=== PATIENT | male | born 1965 | race Caucasian/White ===

== ENCOUNTER 2018-11-29 15:11 | Inpatient (IN) | payer SELFPAY ==
[~2018-11-29 15:11] MED LIST: ISOVUE-370 76%-LOCM 1 ML ONE
[2018-11-29 15:55] LABS: Hemoglobin 15.9 g/dL (14.0-18.0); Mean Corpuscular HGB CONC 33.8 g/dL (32.0-36.0); Mean Corpuscular Hemoglobin 32.7 pg (27.0-31.0); Mean Corpuscular Volume 96.8 fL (78.0-98.0); Mean Platelet Volume 7.3 fL (7.4-10.4); Platelet Count 339 thou/uL (130-400); RBC Distribution Width 12.4 % (11.5-14.5); Red Blood Cell (RBC) Count 4.85 mill/uL (4.70-6.10); White Blood Cell (WBC) Count 14.6 thou/uL (4.8-10.8)
[2018-11-29 16:10] LABS: ALT (SGPT) 24 U/L (8-55); AST (SGOT) 25 U/L (5-34); Albumin 4.3 g/dL (3.5-5.0); Alkaline Phosphatase 68 U/L (40-150); Anion Gap 19 mmol/L (10-20); BUN (Urea Nitrogen) 30 mg/dL (8.4-25.7); Bilirubin, Total 1.1 mg/dL (0.2-1.2); CK (CPK) 95 U/L (30-200); Calc. Creatinine Clearance 0 mL/min (70-130); Calcium 9.7 mg/dL (7.8-10.44); Carbon Dioxide 31 mmol/L (22-29); Chloride 92 mmol/L (98-107); Estimated GFR-MDRD 62; Globulin 3.3 g/dL (2.4-3.5); Glucose 113 mg/dL (70-105); Protein, Total 7.6 g/dL (6.0-8.3); Sodium 139 mmol/L (136-145)
[2018-11-29 16:21] LABS: Potassium 2.8 mmol/L (3.5-5.1)
[2018-11-29] MEDS ORDERED: Morphine 4 MG/ML VIAL ONE (16:24)
[2018-11-29] MEDS ORDERED: Ondansetron PF 4 MG/2 ML Vial ONE (16:24)
--- NOTE | 2018-11-29 16:24 | RAD ---
Chest AP view INDICATION: Preoperative examination; history of hernia and nausea and vomiting COMPARISON: Prior exam dated July 29, 2004 FINDINGS:The lungs are clear. Heart size is within normal limits. No pleural effusion or pneumothorax is evident. No acute osseous abnormality is evident. IMPRESSION: No acute cardiopulmonary abnormality.
[2018-11-29 16:25] LABS: Eosinophils 1 % (0-10); Lymphocytes 10 % (21-51); MDiff Complete? YES; Monocytes 9 % (0-10); Neutrophil 76 % (42-75); Platelet Morphology Comment Appears Adequate; RBC Morphology Normal; Reactive Lymphocytes 3 % (0-10)
[2018-11-29] MEDS ORDERED: NS 0.9% w/ 20 MEQ KCL 1,000 ML IV SCH (16:30)
[2018-11-29 16:32] LABS: CKMB 2.3 ng/mL (0-6.6)
--- NOTE | 2018-11-29 16:43 | CT ---
EXAM: Abdomen and pelvic CT scan with contrast: HISTORY: Acute onset abdominal pain, nausea vomiting, hernia COMPARISON: 08/07/2004 FINDINGS: The visualized lung bases are clear. Liver: Unremarkable. Gallbladder: Unremarkable. Pancreas: Unremarkable Spleen: Unremarkable. Adrenal glands: Unremarkable. Kidneys: Bilateral nonobstructive calculi No solid or cystic mass. Bowel: There is evidence of fluid-filled distention of multiple loops of hyperemic small bowel which is related to an incarcerated hernia at the periumbilical region. The distal bowel is decompressed with site of transition at the level of the hernia. There is colonic diverticulosis. Urinary Bladder: Decompressed Adenopathy: No adenopathy within the abdomen or pelvis. Free Air: No free air. Ascites: No ascites. Osseous structures: No acute osseous abnormalities. IMPRESSION: Evidence of incarcerated hernia of the ventral abdominal wall with associated mechanical obstruction. Surgical consultation is recommended. Telephone call of findings placed to ER physician Dr. Chevy rea 1625 hours.
--- NOTE | 2018-11-29 17:11 | PDOC.EVN ---
Event Note - Event Note Event Note: consult dictated. Hernia reduced in ER. Plan elective repair this hospitalization after cardiac clearance.
[2018-11-29] MEDS ORDERED: Aspirin 325 MG TAB ONE (17:12)
--- NOTE | 2018-11-29 17:49 | CON ---
DATE OF CONSULTATION: 11/29/2018 CHIEF COMPLAINT: Abdominal distention, nausea, and vomiting. HISTORY OF PRESENT ILLNESS: This is a 53-year-old male with a known history of umbilical hernia that he has had for several years. It was always reducible for. He would reduce it every morning after waking up. He does have a history of syndrome and that causes him to cough quite a bit. He started to develop more abdominal distention and belly pain this afternoon associated with nausea and vomiting, not passing gas. Seen in the emergency department, where CAT scan reveals this umbilical hernia to have intestine in it, as well as some edematous changes. The pain is described as 6/10, does not radiate. Hurts to push on the umbilical hernia. PAST MEDICAL HISTORY: . PAST SURGICAL HISTORY: He denies. MEDICINES: Allergy medicines, prednisone 10 mg a day. SOCIAL HISTORY: No smoker. Occasional alcohol. REVIEW OF SYSTEMS: Ten-system review of systems is otherwise negative unless described above. PHYSICAL EXAMINATION: VITAL SIGNS: Pulse 105, blood pressure is 140/86. He is afebrile. HEENT: Sclerae anicteric. Oropharynx clear. NECK: No lymphadenopathy. CHEST: Clear. HEART: Regular rate and rhythm. ABDOMEN: Soft, minimally distended, but active bowel sounds. There is an incarcerated umbilical hernia that was able to be reduced at the bedside. EXTREMITIES: No ischemia or edema to extremities. LABORATORY DATA: White blood cell count is 14, hemoglobin is 15, platelet count is 339. Sodium 139, potassium 2.8, creatinine is 1.21. Troponin is mildly high at 0.043. IMAGING STUDIES: CT scan as above. ASSESSMENT: Incarcerated umbilical hernia, reduced at the bedside. PLAN: Admit to Medicine. He has mild EKG changes and elevated troponin. Once that is worked out, I can take him to the operating room for elective hernia repair. Risks, benefits, and alternatives were discussed. He gives consent. Job ID: [id number]
[2018-11-29] MEDS ORDERED: Ondansetron ODT 4 MG TAB SL PRN (18:33)
[2018-11-29] MEDS ORDERED: Ondansetron PF 4 MG/2 ML Vial IVP PRN (18:33)
[2018-11-29 20:06] LABS: Troponin I 0.027 ng/mL (< 0.028)
[2018-11-29] MEDS ORDERED: [UNRECOGNIZED DRUG - REMARK] NASAL PRN (21:57)
[2018-11-29] MEDS ORDERED: predniSONE 5 MG TAB PO SCH (22:00)
[2018-11-29] MEDS ORDERED: Loratadine 10 MG TAB PO PRN (22:03)
[2018-11-29] MEDS ORDERED: Fluticasone Propionate Nasal Spray 16 gm Bottle NASAL PRN (22:15)
[2018-11-29] MEDS ORDERED: Potassium Chloride 40 MEQ in Sodium Chloride 0.9% 250 ML 250 ML IVPB SCH (22:15)
[2018-11-29] MEDS ORDERED: CHLORPHENIRAMINE MALEATE 4 MG PO PRN (22:15)
[2018-11-29] MEDS ORDERED: guaiFENesin 200 MG TAB PO PRN (22:15)
[2018-11-29 23:31] LABS: Troponin I 0.041 ng/mL (< 0.028)
[2018-11-30] MEDS ORDERED: Morphine 2 MG/ML SYRINGE SLOW IVP PRN (02:15)
[2018-11-30] MEDS: Morphine 4 MG/ML VIAL SLOW IVP PRN ×2 (02:26→19:40)
--- NOTE | 2018-11-30 02:47 | HP ---
CHIEF COMPLAINT: Abdominal pain related to hernia. 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 The patient reports that his typical routine is to wake up in the morning, reduced the hernia and then wear the binder strap for the remainder of the day. This worked well until Thursday, at that time, he reduced it in the morning, but about an hour later started having significant abdominal pain that persisted throughout the day and ultimately resulted in vomiting throughout the night, Thursday night. The pain remained fairly severe throughout Thursday. The patient reports he just stayed in bed, did not eat or drink much. He did not have any further vomiting at that time. He reports that the hernia did pop back out, and since that time, it had not reduced and he was not able to make it reduce. The patient ultimately presented to the emergency department today. He was seen in consultation by Dr. Adams and ultimately they were able to reduce the hernia, and the patient reports that he is actually feeling somewhat better now. The patient also reports that during these episodes on Thursday, he was experiencing some chest pain as well, but was in the midst of all the vomiting. He has not had pain like that previously. REVIEW OF SYSTEMS: The patient reports some mild sleep problems and has occasional shortness of breath. He does report that he would be able to comfortably walk several city blocks and only get short of breath, if he is walking up stairs. 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 He has a history of pericarditis with pericardial effusion, which apparently resolved spontaneously and was followed by Dr. Baldwin. PAST SURGICAL HISTORY: Only a dental extraction that the patient reports that he had full anesthesia related to that. FAMILY HISTORY: Father had a CVA at 85. His mother had an SC. SOCIAL HISTORY: The patient is a nonsmoker, nondrug user. Drinks socially. He is single. He is a full code and his mother, Mike would be his surrogate decision maker. ALLERGIES: NONE. CURRENT MEDICATIONS: 1. Prednisone 5 mg b.i.d. 2. Guaifenesin/dextromethorphan one p.o. q.4 hours p.r.n. 3. Triamcinolone nasal spray two sprays per nostril daily. 4. Loratadine 10 mg daily. 5. Guaifenesin 400 mg q.4 hours p.r.n. 6. Fluticasone Allergy Relief two sprays per nostril daily. 7. ChlorTabs 4 mg q.4 p.r.n. 8. Zyrtec 10 mg daily p.r.n. PHYSICAL EXAMINATION: VITAL SIGNS: Temperature 98.6, pulse 112, respirations 17, O2 saturations 95% on room air, and blood pressure is 135/76. GENERAL APPEARANCE: An age-appropriate male. He is awake, alert, oriented, pleasant, and cooperative, in no distress. HEENT: PERRL. No OP lesions. NECK: Supple and symmetric. No lymphadenopathy, JVD, or bruits. HEART: Regular rate and rhythm without murmurs, gallops, or rubs. LUNGS: Clear to auscultation bilaterally with good chest wall expansion and air exchange. ABDOMEN: Soft, nontender, and nondistended. The umbilical hernia does protrude with any increased abdominal pressure, but it is easily reducible. He has slight tenderness to palpation in the left lower quadrant lateral to the umbilicus. EXTREMITIES: No cyanosis, clubbing, or edema. Pulses are faint, but symmetric. NEUROLOGIC: The patient appears to be grossly intact. He moves all extremities spontaneously. No focal deficits. PSYCHIATRIC: The patient has normal affect and behavior. LABORATORY DATA: White count 14.6, hemoglobin 15.9, platelets 339, 76 neutrophils, 10 lymphocytes, no bands noted. Sodium 139, potassium 2.8, chloride 92, CO2 of 31, BUN 30, creatinine 1.21, and glucose 113. LFTs are normal. Troponin 0.043, subsequent 0.027. Albumin is 4.3. DIAGNOSTIC DATA: CT abdomen and pelvis done before reduction of the hernia revealed evidence of incarcerated hernia in the ventral abdominal wall associated with mechanical obstruction. Chest x-ray, unclear. EKG showed some early repolarization and some nonspecific ST changes in the lateral leads. IMPRESSION AND PLAN: 1. Incarcerated umbilical hernia, which is now reduced. The plan is for surgical repair prior to discharge. 2. Chest pain. The patient has some chest pain in the midst of having vomiting in this obstruction, unclear if this was related to the gastrointestinal tract or if it was cardiac. His initial troponin was slightly elevated. Repeat is back to normal range. He has no cardiac history. He has minimal risk factors. His EKG is fairly nonspecific. We will continue to keep him on tele, rule out with serial enzymes and repeat EKG in the morning. Pending the EKG results, the patient may need a stress test, so that he can be cleared to have the surgery. 3. Hypokalemia. The patient is receiving IV fluids with potassium supplementation. We will go ahead and give him an IV dose of 40 mEq IV x1, and recheck those in the morning. 4. History of Churg-Nish disease. We will continue with prednisone and his usual medical regimen as best we can emulate of avoiding any significant cardiac stimulants, but we will give him albuterol nebs as needed. Job ID: [id number]
[2018-11-30] MEDS: NS 0.9% w/ 20 MEQ KCL 1,000 ML/1,000 ML BAG IV SCH ×3 (03:58→18:30)
[2018-11-30 06:02] LABS: #Basophils 0.1 thou/uL (0.0-0.2); #Eosinphils 0.6 thou/uL (0.0-0.7); #Lymphocytes 0.9 thou/uL (1.20-3.40); #Monocytes 1.1 thou/uL (0.11-0.59); #Neutrophils 10.1 thou/uL (1.40-6.50); %Basophils 0.5 % (0.0-1.0); %Eosinophils 4.7 % (0.0-10.0); %Monocytes 8.7 % (0.0-10.0); %Neutrophils 79.1 % (42.0-75.0); Hemoglobin 13.2 g/dL (14.0-18.0); Mean Corpuscular HGB CONC 33.8 g/dL (32.0-36.0); Mean Corpuscular Hemoglobin 33.5 pg (27.0-31.0); Mean Corpuscular Volume 99.2 fL (78.0-98.0); Mean Platelet Volume 7.3 fL (7.4-10.4); Platelet Count 261 thou/uL (130-400); RBC Distribution Width 12.2 % (11.5-14.5); Red Blood Cell (RBC) Count 3.95 mill/uL (4.70-6.10); White Blood Cell (WBC) Count 12.8 thou/uL (4.8-10.8)
[2018-11-30 06:10] LABS: Anion Gap 14 mmol/L (10-20); BUN (Urea Nitrogen) 23 mg/dL (8.4-25.7); Calc. Creatinine Clearance 127 mL/min (70-130); Calcium 8.3 mg/dL (7.8-10.44); Carbon Dioxide 27 mmol/L (22-29); Chloride 104 mmol/L (98-107); Estimated GFR-MDRD Greater than 90; Glucose 79 mg/dL (70-105); Potassium 3.5 mmol/L (3.5-5.1); Sodium 141 mmol/L (136-145)
[2018-11-30] MEDS ORDERED: predniSONE 5 MG TAB PO SCH (09:00)
[2018-11-30] MEDS: Albuterol Sulfate 2.5 mg/3 ml Neb NEB PRN ×2 (09:26→15:34)
[2018-11-30] MEDS: guaiFENesin/DM ER PO PRN ×2 (10:39→22:54)
[2018-11-30] MEDS ORDERED: methylPREDNISolone Sod Succ/PF 125 MG/2 ML VIAL IVP SCH (12:15)
--- NOTE | 2018-11-30 13:45 | PDOC.PN ---
- Subjective Encounter Start Date: 11/30/18 Encounter Start Time: 13:10 CC; abdominal pain. chest pain HPI; 53 male with h/o Churg-Nish who came for nonreducible umbilical hernia but also develop chest pain. Abnormal troponin on triage. Subjective; patient seen and eval at bedside. He refers nasal congestion. Per nurse, no other acute events overnight. ROS: all systems are reviewed and negativ except for the ones mentioned above - Objective Resuscitation Status - Order Detail: 11/29/18 21:55 Resuscitation Status Routine Resuscitation Status: FULL: Full Resuscitation MAR Reviewed: Yes Vital Signs & Weight: Vital Signs (12 hours) Temp Pulse Resp BP Pulse Ox 11/30/18 11:23 98.1 F 84 16 142/74 H 97 11/30/18 09:26 92 18 99 11/30/18 08:01 98 F 86 18 146/70 H 98 11/30/18 04:00 98.1 F 87 18 132/69 99 Weight Admit Weight 197 lb 3.2 oz Weight 198 lb I&O: 11/29/18 11/30/18 12/01/18 06:59 06:59 06:59 Intake Total 850 Output Total 500 Balance 350 Result Diagrams: 11/30/18 05:26 11/30/18 05:26 Radiology Reviewed by me: Yes EKG Reviewed by me: Yes Phys Exam - Physical Examination HEENT: PERRLA, moist MMs, sclera anicteric Neck: no nodes, no JVD, supple, full ROM Respiratory: no wheezing, no rales, no rhonchi, clear to auscultation bilateral Cardiovascular: RRR, no significant murmur, no rub Gastrointestinal: soft, non-tender, no distention, positive bowel sounds Reducible umbilical hernia Musculoskeletal: no edema, pulses present Neurological: non-focal, normal sensation, moves all 4 limbs Psychiatric: normal affect, A&O x 3 Skin: no rash, normal turgor, cap refill <2 seconds Dx/Plan (1) Incarcerated umbilical hernia Code(s): K42.0 - UMBILICAL HERNIA WITH OBSTRUCTION, WITHOUT GANGRENE Status: Acute Plan: Reducible now. General surgery follows and awaiting surgical clearance. (2) Chest pain Code(s): R07.9 - CHEST PAIN, UNSPECIFIED Status: Acute Qualifiers: Chest pain type: unspecified Qualified Code(s): R07.9 - Chest pain, unspecified Plan: Suspect referred pain. Abnormal troponin. Cardiology consulted (3) Elevated troponin Code(s): R74.8 - ABNORMAL LEVELS OF OTHER SERUM ENZYMES Status: Acute Plan: Nonspecific. Cardiology consulted. h/o vasculitis concerning for CAD. ASA 81 daily. 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 - Plan cont current plan of care CODE; FULL CORE; SCDs DISP; TELEMETRY PROG; GUARDED CLINICAL STATUS; GUARDED EXPECTED DISCHARGE; TBD TOTAL TIME SPENT; 32 MINUTES DATE OF SERVICE; 11/30/2018
[2018-11-30] MEDS ORDERED: Aspirin 81 mg Enteric Coated Tablet PO SCH (14:00)
[2018-11-30] MEDS: Atorvastatin Calcium 40 MG TAB PO SCH (19:37)
--- NOTE | 2018-11-30 21:28 | CON ---
DATE OF CONSULTATION: 11/30/2018 REASON FOR CONSULTATION: Preoperative evaluation. HISTORY OF PRESENT ILLNESS: Mr. Shawn Thakur is a 53-year-old gentleman. The patient has a history of umbilical hernia. He has always been able to reduce this when it became a problem for him until this most recent episode where he finally came to the emergency room where he was unable to reduce his hernia, started nausea, vomiting, not passing gas, severe recurrent vomiting. He has some chest pain associated with this after the prolonged vomiting. His main symptom was severe abdominal pain associated with this, ultimately was able to be reduced by Dr. Adams and he is feeling much better. REVIEW OF SYSTEMS: CONSTITUTIONAL: No significant weight gain or weight loss. VISION: No changes. HEARING: No changes. PULMONARY: No cough or wheezing. GASTROINTESTINAL: No nausea, vomiting, or diarrhea. He does have some intermittent wheezing, but is breathing well now. PAST MEDICAL HISTORY: Churg-Nish disease, which maintained on prednisone; history of pericarditis many years ago with pericardial effusion, which spontaneously resolved. PAST SURGICAL HISTORY: Negative for cardiac operations or procedures. FAMILY HISTORY: Father with a stroke at 85. SOCIAL HISTORY: No smoking or drugs. Drinks socially. Single. ALLERGIES: NONE. MEDICATIONS: Prior to admission, 1. Prednisone. 2. Loratadine. 3. Zyrtec. PHYSICAL EXAMINATION: GENERAL: Now the patient is comfortable, resting comfortably, in no distress. VITAL SIGNS: Blood pressure 142/74, pulse 84 and regular. EYES: Sclerae nonicteric. MOUTH: Mucous membranes moist. NECK: Supple. No lymphadenopathy. LUNGS: Clear. No wheezing, rales, or rhonchi. CARDIAC: Normal S1, normal S2. There is no murmur, rub, or gallop. ABDOMEN: Soft and nontender. EXTREMITIES: Warm, dry. No clubbing, no cyanosis, no edema. LABORATORY STUDIES: EKG initially when he came in there was a sinus tachycardia with some nonspecific ST depression in lead II, V4, V5, V6. Followup EKG showed only some very minimal nonspecific EKG findings. There is a possible old inferior infarct that is probably related to axis deviation. Potassium was 2.8, up to 3.5. Peak troponin 0.043. It is in the indeterminates all the way up to 0.29. ASSESSMENT: 1. Umbilical hernia with incarceration. Fortunately, they will be able to be reduced. 2. Nonspecific ST changes with tachycardia. 3. Indeterminate troponin levels associated with shortness of breath, but mostly chest pain after prolonged nausea and vomiting, probably gastrointestinal in origin. 4. The patient could have underlying coronary artery disease, but needs surgical repair of this umbilical hernia relatively soon. PLAN: 1. Echocardiogram to further risk stratify. 2. Stress testing to further risk stratify. Hopefully unless there are severe abnormalities, can proceed to surgery later this week. Job ID: [id number]
--- NOTE | 2018-11-30 23:14 | EKG ---
Test Reason : Blood Pressure : / mmHG Vent. Rate : 089 BPM Atrial Rate : 089 BPM P-R Int : 144 ms QRS Dur : 084 ms QT Int : 366 ms P-R-T Axes : 033 -05 -69 degrees QTc Int : 445 ms Normal sinus rhythm Inferior infarct , age undetermined /Possibly with QS lead III and aVf Abnormal ECG When compared with ECG of 29-NOV-2018 15:28, (Unconfirmed) ST no longer elevated in Inferior leads Nonspecific T wave abnormality has replaced inverted T waves in Lateral leads Confirmed by SAPPHIRE REEVES ([id number]) on 11/30/2018 11:14:04 PM Referred By: ALE Confirmed By:SAPPHIRE REEVES
[2018-12-01] MEDS: NS 0.9% w/ 20 MEQ KCL 1,000 ML/1,000 ML BAG IV SCH ×2 (01:42→19:31)
[2018-12-01] MEDS: Morphine 4 MG/ML VIAL SLOW IVP PRN ×3 (01:51→19:39)
[2018-12-01 06:51] LABS: Hemoglobin 12.9 g/dL (14.0-18.0); Mean Corpuscular Hemoglobin 32.1 pg (27.0-31.0); Mean Corpuscular Volume 97.4 fL (78.0-98.0); Mean Platelet Volume 7.6 fL (7.4-10.4); Platelet Count 301 thou/uL (130-400); Red Blood Cell (RBC) Count 4.01 mill/uL (4.70-6.10); White Blood Cell (WBC) Count 11.9 thou/uL (4.8-10.8)
[2018-12-01 06:58] LABS: ALT (SGPT) 20 U/L (8-55); AST (SGOT) 19 U/L (5-34); Albumin 3.5 g/dL (3.5-5.0); Alkaline Phosphatase 59 U/L (40-150); Anion Gap 12 mmol/L (10-20); BUN (Urea Nitrogen) 15 mg/dL (8.4-25.7); Bilirubin, Total 0.5 mg/dL (0.2-1.2); Calc. Creatinine Clearance 145 mL/min (70-130); Calcium 8.7 mg/dL (7.8-10.44); Carbon Dioxide 23 mmol/L (22-29); Chloride 109 mmol/L (98-107); Cholesterol 198 mg/dl (< 200 Desired); Estimated GFR-MDRD Greater than 90; Globulin 2.7 g/dL (2.4-3.5); Glucose 118 mg/dL (70-105); HDL Cholesterol 33 mg/dL (>60 Neg Risk); LDL Cholesterol, Calculated 128 mg/dL; Magnesium 1.9 mg/dL (1.6-2.6); Potassium 3.9 mmol/L (3.5-5.1); Protein, Total 6.2 g/dL (6.0-8.3); Sodium 140 mmol/L (136-145); Triglycerides 185 mg/dL (Less than 150)
[2018-12-01] MEDS ORDERED: methylPREDNISolone Sod Succ/PF 125 MG/2 ML VIAL IVP SCH (09:00)
[2018-12-01] MEDS ORDERED: Regadenoson 0.4 MG/5 ML SYRINGE ONE (10:17)
--- NOTE | 2018-12-01 10:25 | PDOC.GSPN ---
Surgery Progress Note: Subj - Subjective Patient reports: no new complaints (Having stress test second stage this am) Surgery Progress Note: Obj - Vital signs Vital signs: Vital Signs - Most Recent Temp Pulse Resp BP Pulse Ox 98.1 F 92 16 140/84 96 12/01/18 04:00 12/01/18 07:23 12/01/18 07:23 12/01/18 04:00 12/01/18 07:23 - Physical Exam General: no distress Abdomen: soft, non tender, nondistended Surgery Progress Note: Results - Labs Result Diagrams: 12/01/18 06:16 12/01/18 06:16 Lab results: Laboratory Results - last 24 hr 12/01/18 12/01/18 06:16 06:16 WBC 11.9 H RBC 4.01 L Hgb 12.9 L Hct 39.1 L MCV 97.4 MCH 32.1 H MCHC 33.0 RDW 12.0 Plt Count 301 MPV 7.6 Sodium 140 Potassium 3.9 Chloride 109 H Carbon Dioxide 23 Anion Gap 12 BUN 15 Creatinine 0.75 Estimated GFR (MDRD) Greater than 90 Glucose 118 H Calcium 8.7 Magnesium 1.9 Total Bilirubin 0.5 AST 19 ALT 20 Alkaline Phosphatase 59 Serum Total Protein 6.2 Albumin 3.5 Globulin 2.7 Albumin/Globulin Ratio 1.3 Triglycerides 185 H Cholesterol 198 LDL Cholesterol, Calc 128 HDL Cholesterol 33 Heart Disease Risk Ratio 6.0 Surgery Progress Note: A/P - Problem (1) Incarcerated umbilical hernia Current Visit: Yes Code(s): K42.0 - UMBILICAL HERNIA WITH OBSTRUCTION, WITHOUT GANGRENE Status: Acute Assessment and Plan: Reduced in ER - Plan Plan: Await completion of stress test -To OR or Thursday for umbilical hernia repair
--- NOTE | 2018-12-01 11:27 | NM ---
Radionucleotide stress and rest myocardial perfusion scan with CT attenuation correction and SPECT im aging Left ventricular wall motion evaluation and ejection fraction: HISTORY: Chest pain. FINDINGS: Lexiscan protocol. There is homogeneous uptake of radiotracer throughout the left ventricular myocard ium. No focal perfusion defect or reversibility. QGS analysis of gated SPECT images shows global hypokinesis without focal wall motion abnormality. Ej ection fraction calculated at 53%. IMPRESSION: 1. No scintigraphic evidence of ischemia. 2. Borderline ejection fraction of 53% without focal wall motion abnormality. Transcribed Date/Time: 12/01/2018 11:50 AM
[2018-12-01] MEDS: Aspirin 81 mg Enteric Coated Tablet PO SCH (11:29)
[2018-12-01] MEDS: Ondansetron PF 4 MG/2 ML Vial IVP PRN ×2 (11:31→19:39)
--- NOTE | 2018-12-01 12:48 | PDOC.PN ---
- Subjective Encounter Start Date: 12/01/18 Encounter Start Time: 07:00 CC; ABDOMINAL PAIN. CHEST PAIN SUBJECTIVE; PATIENT SEEN AND EVALUATED. REFERS SOME SOB. NO PAIN. PER NURSE, NO OTHER ACUTE EVENTS OVERNIGHT. ROS; ALL SYSTEMS ARE REVIEWED AND NEGATIVE EXCEPT FOR THE ONES MENTIONED ABOVE. - Objective Resuscitation Status - Order Detail: 11/29/18 21:55 Resuscitation Status Routine Resuscitation Status: FULL: Full Resuscitation MAR Reviewed: Yes Vital Signs & Weight: Vital Signs (12 hours) Temp Pulse Resp BP Pulse Ox 12/01/18 11:45 99 12/01/18 11:30 97.5 F L 93 18 136/86 99 12/01/18 07:23 92 16 96 12/01/18 04:00 98.1 F 89 13 140/84 95 Weight Admit Weight 197 lb 3.2 oz Weight 200 lb 4 oz I&O: 11/30/18 12/01/18 12/02/18 06:59 06:59 06:59 Intake Total 850 3515 Output Total 500 2550 Balance 350 965 Result Diagrams: 12/01/18 06:16 12/01/18 06:16 Radiology Reviewed by me: Yes EKG Reviewed by me: Yes Phys Exam - Physical Examination HEENT: PERRLA, moist MMs, sclera anicteric Neck: no nodes, no JVD, supple Respiratory: no wheezing, no rales, no rhonchi Cardiovascular: RRR, no significant murmur, no rub Gastrointestinal: soft, non-tender, no distention, positive bowel sounds REDUCIBLE UMBILACAL HERNIA Musculoskeletal: no edema, pulses present Neurological: non-focal, normal sensation, moves all 4 limbs Psychiatric: normal affect, A&O x 3 Skin: no rash, normal turgor, cap refill <2 seconds Dx/Plan (1) Incarcerated umbilical hernia Code(s): K42.0 - UMBILICAL HERNIA WITH OBSTRUCTION, WITHOUT GANGRENE Status: Acute Plan: REDUCIBLE. FOR SURGICAL REPAIR THURSDAY OR THURSDAY (2) Chest pain Code(s): R07.9 - CHEST PAIN, UNSPECIFIED Status: Acute Qualifiers: Chest pain type: unspecified Qualified Code(s): R07.9 - Chest pain, unspecified Plan: NEGATIVE STRESS TEST. RESOLVED (3) Elevated troponin Code(s): R74.8 - ABNORMAL LEVELS OF OTHER SERUM ENZYMES Status: Acute Plan: NEGATIVE STRESS TEST. 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 INCREASE SOLU-MEDROL FREQUENCY. FOR SURGERY LIKELY TOMORROW. CODE; FULL CORE; SCD DISP; SURGICAL PROG; GUARDED CLINICAL STATUS; GUARDED EXPECTED DISCHARGE; TO BE DETERMINED TOTAL TIME SPENT; 25 MINUTES DATE OF SERVICE; 12/01/2018
[2018-12-01] MEDS: guaiFENesin/DM ER PO PRN (14:49)
--- NOTE | 2018-12-01 15:42 | PRG ---
DATE OF SERVICE: 12/01/2018 SUBJECTIVE: Mr. Thakur is doing well. No complaints. OBJECTIVE: VITAL SIGNS: Blood pressure 136/84. Pulse 90 and regular. LUNGS: Clear. CARDIAC: Normal S1 and normal S2. PERTINENT LABORATORY DATA: The stress test showed no ischemia. The ejection fraction is 53%. ASSESSMENT: 1. No evidence of any ischemia on stress testing. 2. Incarcerated umbilical hernia, now it is reduced. PLAN: The patient is okay to proceed with surgical therapy as is being planned. Job ID: [id number]
[2018-12-01] MEDS: Atorvastatin Calcium 40 MG TAB PO SCH (19:38)
[2018-12-01] MEDS: methylPREDNISolone Sod Succ/PF 125 MG/2 ML VIAL IVP SCH (19:38)
[2018-12-02 06:29] LABS: Hemoglobin 12.9 g/dL (14.0-18.0); Mean Corpuscular HGB CONC 33.6 g/dL (32.0-36.0); Mean Corpuscular Volume 98.2 fL (78.0-98.0); Mean Platelet Volume 7.5 fL (7.4-10.4); Platelet Count 317 thou/uL (130-400); RBC Distribution Width 11.9 % (11.5-14.5); Red Blood Cell (RBC) Count 3.92 mill/uL (4.70-6.10); White Blood Cell (WBC) Count 12.3 thou/uL (4.8-10.8)
[2018-12-02 06:54] LABS: ALT (SGPT) 23 U/L (8-55); AST (SGOT) 20 U/L (5-34); Albumin 3.7 g/dL (3.5-5.0); Alkaline Phosphatase 54 U/L (40-150); Anion Gap 15 mmol/L (10-20); BUN (Urea Nitrogen) 17 mg/dL (8.4-25.7); Bilirubin, Total 0.5 mg/dL (0.2-1.2); Calc. Creatinine Clearance 135 mL/min (70-130); Carbon Dioxide 22 mmol/L (22-29); Chloride 108 mmol/L (98-107); Estimated GFR-MDRD Greater than 90; Globulin 2.7 g/dL (2.4-3.5); Glucose 114 mg/dL (70-105); Potassium 3.8 mmol/L (3.5-5.1); Protein, Total 6.4 g/dL (6.0-8.3); Sodium 141 mmol/L (136-145)
[2018-12-02] MEDS ORDERED: Bupivacaine/Epinephrine 0.25% 30 ML VIAL ONE (08:44)
[2018-12-02] MEDS ORDERED: Fentanyl 250 MCG/5 ML VIAL ONE (09:02)
[2018-12-02] MEDS ORDERED: SUGAMMADEX SODIUM 500 MG/5 ML VIAL ONE (09:47)
--- NOTE | 2018-12-02 10:15 | PDOC.PN ---
- Subjective Encounter Start Date: 12/02/18 Encounter Start Time: 08:20 CC; ABDOMINAL PAIN. CHEST PAIN SUBJECTIVE; PATIENT SEEN AND EVAL. NO ACUTE COMPLAINTS. NEGATIVE STRESS TEST. PER NURSE, NO OTHER ACUTE EVENTS ROS; ALL SYSTEMS ARE REVIEWED AND NEGATIVE EXCEPT FOR THE ONES MENTIONED ABOVE. - Objective Resuscitation Status - Order Detail: 11/29/18 21:55 Resuscitation Status Routine Resuscitation Status: FULL: Full Resuscitation MAR Reviewed: Yes Vital Signs & Weight: Vital Signs (12 hours) Temp Pulse Resp BP Pulse Ox 12/02/18 07:55 100 14 12/02/18 07:30 98.4 F 93 20 162/97 H 12/02/18 04:00 98.3 F 94 17 161/84 H 96 Weight Admit Weight 197 lb 3.2 oz Weight 199 lb 2 oz I&O: 12/01/18 12/02/18 12/03/18 06:59 06:59 06:59 Intake Total 3515 1900 Output Total 2550 950 Balance 965 950 Result Diagrams: 12/02/18 06:00 12/02/18 06:00 Radiology Reviewed by me: Yes EKG Reviewed by me: Yes Phys Exam - Physical Examination HEENT: PERRLA, moist MMs, sclera anicteric Neck: no nodes, no JVD, supple Respiratory: no wheezing, no rales, no rhonchi, clear to auscultation bilateral Cardiovascular: RRR, no significant murmur, no rub Gastrointestinal: soft, non-tender, no distention REDUCIBLE UMBILICAL HERNIA Musculoskeletal: no edema, pulses present Neurological: non-focal, normal sensation, moves all 4 limbs Dx/Plan (1) Incarcerated umbilical hernia Code(s): K42.0 - UMBILICAL HERNIA WITH OBSTRUCTION, WITHOUT GANGRENE Status: Acute Plan: POSSIBLE SURGERY TODAY (2) Chest pain Code(s): R07.9 - CHEST PAIN, UNSPECIFIED Status: Acute Qualifiers: Chest pain type: unspecified Qualified Code(s): R07.9 - Chest pain, unspecified Plan: RESOLVED. CARDIAC STRESS TEST NEGATIVE (3) Elevated troponin Code(s): R74.8 - ABNORMAL LEVELS OF OTHER SERUM ENZYMES Status: Acute Plan: NONSPECIFIC. 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
[2018-12-02] MEDS ORDERED: Promethazine HCl 25 MG/ML VIAL IM PRN (10:57)
[2018-12-02] MEDS ORDERED: Promethazine HCl 25 MG/ML VIAL SLOW IVP PRN (10:57)
[2018-12-02] MEDS ORDERED: Meperidine HCl/PF 25 MG/ML VIAL SLOW IVP PRN (10:57)
[2018-12-02] MEDS ORDERED: Ondansetron HCl/PF 4 MG/2 ML Vial IVP PRN (10:57)
[2018-12-02] MEDS ORDERED: Fentanyl 100 MCG/2 ML VIAL ONE (11:12)
[2018-12-02] MEDS: Aspirin 81 mg Enteric Coated Tablet PO SCH (12:02)
[2018-12-02] MEDS: methylPREDNISolone Sod Succ/PF 125 MG/2 ML VIAL IVP SCH ×2 (12:04→20:28)
[2018-12-02] MEDS ORDERED: traMADol HCl 50 MG TAB PO PRN (12:40)
--- NOTE | 2018-12-02 13:56 | OP ---
DATE OF PROCEDURE: 12/02/2018 PREOPERATIVE DIAGNOSIS: Incarcerated umbilical hernia. POSTOPERATIVE DIAGNOSIS: Incarcerated umbilical hernia. PROCEDURE PERFORMED: Incarcerated umbilical hernia repair with mesh, Ventralex ST 6 cm. ANESTHESIA: General. ESTIMATED BLOOD LOSS: Minimal. COMPLICATIONS: None. SPECIMEN: None. FINDINGS: Incarcerated umbilical hernia. DESCRIPTION OF PROCEDURE: The patient was taken to the operating room and laid supine on the operating room table. After general anesthetic was obtained, the hernia was able to be reduced. The abdomen was shaved, prepped, and draped in a sterile fashion. A curved incision was made below the umbilicus. Cautery was dissected down to, the umbilical stalk was amputated, exposing umbilical defect. The hernia sac was debrided at the level of the fascia. The Ventralex ST 6 cm mesh was brought in the sterile field. The underlay was placed in the abdominal cavity as tails laid out laterally. Its tails were sewn via U-stitch of permanent braided suture to the edge of the fascia laterally and superiorly and inferiorly. The fascia was closed loosely over the mesh. The wound was irrigated. Local anesthetic was applied. The umbilical stalk was tacked back down using Vicryl. Skin was closed using 3-0 Vicryl, 4-0 Monocryl, and Dermabond. The patient was then sent to Recovery in stable condition. All instrument counts, needle counts, and lap counts were correct. Job ID: [id number]
[2018-12-02] MEDS ORDERED: Rocuronium Bromide 10 MG/ML (10ML VIAL) ONE (17:00)
[2018-12-02] MEDS ORDERED: Ondansetron PF 4 MG/2 ML Vial ONE (17:00)
[2018-12-02] MEDS ORDERED: Ketorolac Tromethamine 30 MG/ML VIAL ONE (17:00)
[2018-12-02] MEDS ORDERED: Lidocaine 1% PF 5 ML VIAL ONE (17:00)
[2018-12-02] MEDS ORDERED: PROPOFOL 200 MG/20 ML VIAL ONE (17:00)
[2018-12-02] MEDS ORDERED: Metoclopramide HCl 10 MG/2 ML VIAL ONE (17:00)
[2018-12-02] MEDS: HYDROcodone/Acetaminophen 10/325 mg Tablet PO PRN ×2 (17:30→22:08)
[2018-12-02] MEDS: guaiFENesin/DM ER PO PRN (20:28)
[2018-12-02] MEDS: Atorvastatin Calcium 40 MG TAB PO SCH (20:28)
[2018-12-03] MEDS: HYDROcodone/Acetaminophen 10/325 mg Tablet PO PRN ×3 (05:13→16:43)
[2018-12-03 05:25] LABS: Hemoglobin 13.2 g/dL (14.0-18.0); Mean Corpuscular HGB CONC 33.5 g/dL (32.0-36.0); Mean Corpuscular Hemoglobin 32.8 pg (27.0-31.0); Mean Corpuscular Volume 97.8 fL (78.0-98.0); Mean Platelet Volume 7.5 fL (7.4-10.4); Platelet Count 318 thou/uL (130-400); RBC Distribution Width 11.8 % (11.5-14.5); Red Blood Cell (RBC) Count 4.02 mill/uL (4.70-6.10); White Blood Cell (WBC) Count 14.3 thou/uL (4.8-10.8)
[2018-12-03 05:47] LABS: ALT (SGPT) 20 U/L (8-55); AST (SGOT) 14 U/L (5-34); Albumin 3.6 g/dL (3.5-5.0); Alkaline Phosphatase 52 U/L (40-150); Anion Gap 13 mmol/L (10-20); BUN (Urea Nitrogen) 16 mg/dL (8.4-25.7); Bilirubin, Total 0.5 mg/dL (0.2-1.2); Calc. Creatinine Clearance 125 mL/min (70-130); Calcium 8.7 mg/dL (7.8-10.44); Carbon Dioxide 23 mmol/L (22-29); Chloride 108 mmol/L (98-107); Estimated GFR-MDRD Greater than 90; Globulin 2.7 g/dL (2.4-3.5); Glucose 130 mg/dL (70-105); Potassium 3.9 mmol/L (3.5-5.1); Protein, Total 6.3 g/dL (6.0-8.3); Sodium 140 mmol/L (136-145)
[2018-12-03] MEDS: Albuterol Sulfate 2.5 mg/3 ml Neb NEB PRN (07:54)
[2018-12-03] MEDS: Aspirin 81 mg Enteric Coated Tablet PO SCH (09:14)
[2018-12-03] MEDS: methylPREDNISolone Sod Succ/PF 125 MG/2 ML VIAL IVP SCH (09:15)
[2018-12-03] MEDS: guaiFENesin/DM ER PO PRN ×2 (09:17→20:26)
--- NOTE | 2018-12-03 09:45 | PRG ---
DATE OF SERVICE: 12/03/2018 SUBJECTIVE: Mr. Thakur has no chest pain or pressure. He tolerated the abdominal surgery well. He is n.p.o. presently. OBJECTIVE: VITAL SIGNS: His blood pressure 154/92, followed by 160/95 and pulse 84. ASSESSMENT: 1. Preoperatively he had some chest pain, but with normal stress test. 2. Normal echocardiogram. PLAN: Postoperative care. No other recommendations presently. Please call us if needed. Job ID: [id number]
[2018-12-03 11:32] VITALS: BMI 26.3
[2018-12-03] MEDS ORDERED: Bacteriostatic Water 30 ML VIAL FS PRN (11:37)
--- NOTE | 2018-12-03 12:12 | PDOC.GSPN ---
Surgery Progress Note: Subj - Subjective Patient reports: feels better, positive flatus, pain well controlled Surgery Progress Note: Obj - Vital signs Vital signs: Vital Signs - Most Recent Temp Pulse Resp BP Pulse Ox 97.7 F 100 20 161/95 H 96 12/03/18 07:30 12/03/18 07:54 12/03/18 07:54 12/03/18 07:30 12/03/18 07:56 - Physical Exam General: no distress Respiratory: clear to auscultation Abdomen: soft, appropriately tender Wound: healing well Surgery Progress Note: Results - Labs Result Diagrams: 12/03/18 05:00 12/03/18 05:00 Lab results: Laboratory Results - last 24 hr 12/03/18 12/03/18 05:00 05:00 WBC 14.3 H RBC 4.02 L Hgb 13.2 L Hct 39.3 L MCV 97.8 MCH 32.8 H MCHC 33.5 RDW 11.8 Plt Count 318 MPV 7.5 Sodium 140 Potassium 3.9 Chloride 108 H Carbon Dioxide 23 Anion Gap 13 BUN 16 Creatinine 0.84 Estimated GFR (MDRD) Greater than 90 Glucose 130 H Calcium 8.7 Total Bilirubin 0.5 AST 14 ALT 20 Alkaline Phosphatase 52 Serum Total Protein 6.3 Albumin 3.6 Globulin 2.7 Albumin/Globulin Ratio 1.3 Surgery Progress Note: A/P - Problem (1) Incarcerated umbilical hernia Current Visit: Yes Code(s): K42.0 - UMBILICAL HERNIA WITH OBSTRUCTION, WITHOUT GANGRENE Status: Acute - Plan Plan: POD 1 umbilical hernia repair with mesh -Had dilated obstructed intestine in hernia at time of repair -advance diet today. -home tomorrow if doing well. Dr. Chiu covering for me. Rx for pain medicine on chart
--- NOTE | 2018-12-03 12:35 | PRG ---
DATE OF SERVICE: 12/03/2018 SUBJECTIVE: The patient is seen and examined at the bedside. He is doing quite well. He does not have much complaints to offer, although he has still quite a bit of abdominal discomfort from surgery done yesterday. He is tolerating liquids orally. His urine output is 820. OBJECTIVE: VITAL SIGNS: Blood pressure is 161/95, pulse is 100, temperature is 97.7, respiratory rate is 20, O2 saturation 96% on room air. HEENT: His head is atraumatic and normocephalic. Eyes are PERRLA. Sclerae are nonicteric. Oral mucosa is moist. NECK: Supple. LUNGS: Clear. HEART: S1 and S2 normal. No S3. No S4. No any murmur. ABDOMEN: Showing some swelling around the navel and some tenderness to touch with mild erythema. Bowel sounds are present. EXTREMITIES: No clubbing, cyanosis, or edema. NEUROLOGICAL: He follows my commands. He moves his all four extremities. There are no any sensory or motor deficits present. Cranial nerves are intact. LABORATORY DATA: Labs showed white count of 14.3, hemoglobin 13.2, hematocrit 39.3, platelet count is 318. Sodium of 140, potassium 3.9, chloride 106, CO2 of 23, BUN 16, creatinine 0.84, glucose 130. The rest of chemistry within normal limits. IMPRESSION: 1. Incarcerated umbilical hernia, status post a repair. 2. Chest pain, unspecified. Negative stress test. 3. Hypokalemia, resolved. 4. 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 PLAN: Plan is to continue current care. We are going to transfer him to the surgical unit. We will advance his diet after discussion with Surgery. We will switch his methylprednisolone from 80 mg to 40 twice a day IV push. Job ID: [id number]
[2018-12-03] MEDS: Atorvastatin Calcium 40 MG TAB PO SCH (20:19)
[2018-12-03] MEDS: methylPREDNISolone Sod Succ 40 MG VIAL IVP SCH (20:20)
[2018-12-04 06:37] LABS: ALT (SGPT) 14 U/L (8-55); AST (SGOT) 11 U/L (5-34); Albumin 3.7 g/dL (3.5-5.0); Alkaline Phosphatase 55 U/L (40-150); Anion Gap 11 mmol/L (10-20); BUN (Urea Nitrogen) 17 mg/dL (8.4-25.7); Bilirubin, Total 0.4 mg/dL (0.2-1.2); Calc. Creatinine Clearance 127 mL/min (70-130); Calcium 8.8 mg/dL (7.8-10.44); Carbon Dioxide 23 mmol/L (22-29); Chloride 109 mmol/L (98-107); Estimated GFR-MDRD Greater than 90; Globulin 2.7 g/dL (2.4-3.5); Glucose 106 mg/dL (70-105); Potassium 3.4 mmol/L (3.5-5.1); Protein, Total 6.4 g/dL (6.0-8.3); Sodium 140 mmol/L (136-145)
[2018-12-04 07:48] VITALS: TEMP 97.8
[2018-12-04] MEDS: Aspirin 81 mg Enteric Coated Tablet PO SCH (08:06)
[2018-12-04] MEDS: methylPREDNISolone Sod Succ 40 MG VIAL IVP SCH ×2 (08:06→19:35)
[2018-12-04] MEDS: guaiFENesin/DM ER PO PRN (08:15)
[2018-12-04] MEDS: HYDROcodone/Acetaminophen 10/325 mg Tablet PO PRN (08:15)
--- NOTE | 2018-12-04 17:01 | PRG ---
DATE OF SERVICE: 12/04/2018 SUBJECTIVE: The patient is seen and examined at the bedside. He noticed increase of his mucus from his upper airways. 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 OBJECTIVE: VITAL SIGNS: Blood pressure is 163/89, pulse is 84, temperature 97.8, respiratory rate 20, and O2 saturation is 97% on room air. HEENT: His head is atraumatic and normocephalic. Eyes are PERRLA. Sclerae are nonicteric. Oral mucosa is moist. NECK: Supple. LUNGS: Clear. HEART: S1 and S2 normal. ABDOMEN: Slightly distended with some tenderness in the umbilical area, where the operation was done. There is no cellulitis. Bowel sounds are present. EXTREMITIES: No clubbing, cyanosis, or edema. NEUROLOGICAL: He is alert and oriented x4. There is no any sensory or motor deficits present. Cranial nerves are intact. LABORATORY DATA: Labs showed sodium of 140, potassium 3.4, chloride 109, CO2 of 23, BUN 70, creatinine 0.83, and glucose 106. The rest of chemistry within normal limits. IMPRESSION: 1. Incarcerated umbilical hernia, status post repair. 2. Chest pain with negative stress test, resolved. 3. Hypokalemia, resolved. 4. 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 PLAN: We are going to advance diet as tolerated. He is tolerating full liquid diet without any issues. We are going to increase his ambulation today. His methylprednisolone dose was cut back to 40 mg twice a day. He will need to be switched to oral prednisone and the dose needs to be tapered over the course of next few days. He is very concerned about his inflammation to come back and make sure that he is getting enough guaifenesin for his increased amount of secretions he noticed. If he tolerates his food and his blood pressure is somewhat better, he can be discharged home tomorrow. Job ID: [id number]
[2018-12-04] MEDS ORDERED: Acetaminophen 500 MG TAB PO PRN ×2 (19:10→19:24)
[2018-12-04] MEDS ORDERED: traMADol HCl 50 MG TAB PO PRN ×2 (19:10→19:23)
[2018-12-04] MEDS ORDERED: Ibuprofen 600 MG TAB PO PRN (19:10)
[2018-12-04] MEDS: Atorvastatin Calcium 40 MG TAB PO SCH (19:35)
--- NOTE | 2018-12-04 20:12 | PRG ---
DATE OF SERVICE: 12/04/2018 SUBJECTIVE: Shawn Thakur is being moved to the medical floor. The patient tolerated his diet. He is not having nausea or vomiting, and is passing flatus. He has not yet had a bowel movement. He is tolerating a regular diet. OBJECTIVE: LUNGS: Clear to auscultation. CARDIAC: Regular rate and rhythm without murmur or gallop. ABDOMEN: Soft and nontender. Umbilical hernia repair. Wound looks healthy. ASSESSMENT AND PLAN: The patient is doing well. He will be discharged anytime from a surgical standpoint. No lifting over 25 pounds for 6 weeks. Follow up with Dr. Adams in 3 to 4 weeks. Medical service can discharge him home in the morning. Job ID: [id number]
[2018-12-05 07:45] VITALS: BP 154/90
[2018-12-05] MEDS: Aspirin 81 mg Enteric Coated Tablet PO SCH (09:29)
[2018-12-05] MEDS: methylPREDNISolone Sod Succ 40 MG VIAL IVP SCH (09:30)
[2018-12-05] MEDS ORDERED: HYDROcodone/Acetaminophen 10/325 mg Tablet PO PRN (14:22)
--- NOTE | 2018-12-05 14:25 | PDOC.PN ---
- Subjective Encounter Start Date: 12/05/18 Encounter Start Time: 14:23 Mr. Thakur was seen today in follow-up of incarcerated hernia- post surgery. He does not have any new complaints. He notes some soreness in the abdomen when he rides in a wheelchair. - Objective Resuscitation Status - Order Detail: 11/29/18 21:55 Resuscitation Status Routine Resuscitation Status: FULL: Full Resuscitation MAR Reviewed: Yes Vital Signs & Weight: Vital Signs (12 hours) Temp Pulse Resp BP Pulse Ox 12/05/18 08:00 97 12/05/18 07:41 97.8 F 76 20 154/90 H 97 12/05/18 03:27 84 Weight Admit Weight 197 lb 3.2 oz Weight 197 lb 10.91 oz I&O: 12/04/18 12/05/18 12/06/18 06:59 06:59 06:59 Intake Total 640 Output Total 1400 Balance -760 Result Diagrams: 12/03/18 05:00 12/04/18 06:06 Phys Exam - Physical Examination HEENT: PERRLA Respiratory: no wheezing, no rales, no rhonchi, clear to auscultation bilateral Cardiovascular: RRR, no significant murmur, no rub Gastrointestinal: soft, positive bowel sounds + mildly distended, mild tenderness Musculoskeletal: no edema, pulses present Dx/Plan (1) Incarcerated umbilical hernia Code(s): K42.0 - UMBILICAL HERNIA WITH OBSTRUCTION, WITHOUT GANGRENE Status: Acute (2) Churg-Nish syndrome Code(s): M30.1 - POLYARTERITIS WITH LUNG INVOLVEMENT [CHURG-NISH] Status: Chronic - Plan * Incercerated Umbillical hernia- he is post surgical repair * He has tolerated a solid diet * stable for discharge home.
--- NOTE | 2018-12-05 20:22 | DIS ---
DATE OF ADMISSION: 11/29/2018 DATE OF DISCHARGE: 12/05/2018 DISCHARGE DISPOSITION: Home. PRIMARY DISCHARGE DIAGNOSES: 1. Incarcerated umbilical hernia. 2. Churg-Nsih disorder. 3. Chest pain, resolved. DISCHARGE MEDICATIONS: 1. Prednisone 5 mg twice daily. 2. Loratadine 10 mg daily. 3. Triamcinolone nasal spray 2 sprays daily. 4. Bidex 400 mg q.4 hours as needed and that is guaifenesin tablet. 5. Zyrtec 10 mg daily. 6. Flonase nasal spray in each naris daily. PROCEDURES DONE DURING ADMISSION: The patient had a nuclear stress test which was negative for any ischemia. The ejection fraction was estimated at 53% without any wall motion abnormalities. CODE STATUS: Full code. ALLERGIES: NO KNOWN DRUG ALLERGIES. HOSPITAL COURSE: Mr. Thakur is a pleasant 53-year-old gentleman, who came to the emergency room after suddenly developing abdominal pain, nausea, and vomiting. He has a known ventral hernia for many years and he had developed an incarcerated umbilical hernia. He was admitted and General Surgery was consulted. He was recommended to undergo surgical repair of the hernia. He underwent a repair of the umbilical hernia with mesh. Also prior to surgery, he had a cardiology evaluation due to some chest pain that he was experiencing. He had a nuclear stress test which was negative as well as an echocardiogram, which was essentially unremarkable and was cleared for surgery. He had an uneventful postoperative course and was subsequently able to be discharged home on 12/05/2018, and is to follow up with Dr. Adams in approximately 2 weeks, also with his primary care physician in 1 to 2 weeks as well. Job ID: [id number]
== END 2018-12-05 15:42 | disposition home or self-care (01) | DRG 354 ==
LOC: ERS 15:11 → 2NO 18:46 → T4-A 12-03 18:14
PROVIDERS: ADMIT Internal Medicine; ATTEND Internal Medicine
PROC: 0WUF0JZ Supplement Abdominal Wall with Synthetic Substitute, Open Approach (ICD-10-PCS; principal; 2018-12-02)
DX: K42.0 Umbilical hernia with obstruction, without gangrene (principal); M30.1 Polyarteritis with lung involvement [Churg-Strauss]; E87.6 Hypokalemia; R74.8 Abnormal levels of other serum enzymes; R07.9 Chest pain, unspecified; Z79.899 Other long term (current) drug therapy; Z79.52 Long term (current) use of systemic steroids
CPT/HCPCS: 36415; 71045; 74177; 78452; 80048; 80053; 80061; 82550; 82553; 83735; 84484; 85025; 85027; 93005; 93010; 93017; 93306; 94640; 94760; 96365; 96375; A9500; J0690; J2270; J2405; J2785; J2920; J2930; J3010; J3480; J7050; J7512; J7611; J7620; Q9966